=== PATIENT | male | born 2000 | race Asian ===

== ENCOUNTER 2019-03-27 18:21 | Emergency (ER) | payer OTHER ==
[2019-03-27 18:25] VITALS: BP 128/79
--- NOTE | 2019-03-27 18:43 | ED ---
Laceration/Wound HPI - HPI Summary HPI Summary: 19-year-old male presents with splinter into left thumb. He states that he noticed after he was kayaking. He did not try to remove it. It appears pretty superficial but it not able to be accessed through the small opening in the skin. No medical conditions. Concerned that will be infected. He wants it removed. - History of Current Complaint Stated Complaint: I WANT TO GET A SPLINTER REMOVED PER PT Time Seen by Provider: 03/27/19 18:26 Pain Intensity: 3 - Allergy/Home Medications Allergies/Adverse Reactions: Allergies Allergy/AdvReac Type Severity Reaction Status Date / Time No Known Allergies Allergy Verified 03/27/19 18:25 PMH/Surg Hx/FS Hx/Imm Hx Endocrine/Hematology History: Denies: Hx Anticoagulant Therapy Respiratory History: Denies: Hx Asthma Infectious Disease History: No Infectious Disease History: Denies: Traveled Outside the [place] in Last 30 Days - Family History Known Family History: Positive: Non-Contributory - Social History Substance Use Type: Reports: None Smoking Status (MU): Never Smoked Tobacco Review of Systems Negative: Fever Negative: Chest Pain Negative: Shortness Of Breath Positive: Other - splinter in left thumb All Other Systems Reviewed And Are Negative: Yes Physical Exam Triage Information Reviewed: Yes Vital Signs On Initial Exam: Initial Vitals Temp Pulse Resp BP Pulse Ox 99.0 F 78 16 128/79 100 03/27/19 18:23 03/27/19 18:23 03/27/19 18:23 03/27/19 18:23 03/27/19 18:23 Vital Signs Reviewed: Yes Appearance: Positive: Well-Appearing Skin: Positive: Other - 1/4cm splinter under skin in left thumb Head/Face: Positive: Normal Head/Face Inspection Eyes: Positive: Normal, Conjunctiva Clear ENT: Positive: Pharynx normal Respiratory/Lung Sounds: Positive: Clear to Auscultation, Breath Sounds Present Cardiovascular: Positive: Normal, RRR Musculoskeletal: Positive: Strength/ROM Intact - left thumb, Other - capillary refill<2secs Neurological: Positive: Normal Psychiatric: Positive: Normal Diagnostics - Vital Signs Vital Signs Temp Pulse Resp BP Pulse Ox 03/27/19 18:23 99.0 F 78 16 128/79 100 - Laboratory Lab Statement: Any lab studies that have been ordered have been reviewed, and results considered in the medical decision making process. Laceration Repair Course/Dx - Course Course Of Treatment: 19-year-old male presents with splinter into left thumb. He states that he noticed after he was kayaking. He did not try to remove it. It appears pretty superficial but it not able to be accessed through the small opening in the skin. No medical conditions. Concerned that will be infected. He wants it removed. On exam has 1/4 cm superficial appearing splinter on the left thumb. made very small incision and eventfully removed it with tweezers. Told to do warm soaks of the area. Will place on short course antibiotics. Patient understands agrees with plan. - Differential Dx Differental Diagnoses: Abrasion, Foreign Body - Clinical Impression Provider Diagnoses: Splinter Discharge - Sign-Out/Discharge Documenting (check all that apply): Patient Departure Patient Received Moderate/Deep Sedation with Procedure: No - Discharge Plan Condition: Good Disposition: HOME Prescriptions: Cephalexin CAP* [Keflex CAP*] 500 mg PO BID #5 cap Patient Education Materials: Soft Tissue Foreign Body (ED) Referrals: No Primary Care Phys,NOPCP [Primary Care Provider] - Additional Instructions: Take antibiotic twice a day for 3 days, first dose given in ED do warm soaks of the area Take ibuprofen or Tylenol for pain every 6 hours Return to ED if develop fever, area of redness spreads, or any new or worsening symptoms - Billing Disposition and Condition Condition: GOOD Disposition: Home - Attestation Statements Provider Attestation: I was available for consultation for this patient. I did not evaluate the patient or participate in any medical decision making or disposition decisions unless I am specifically named in the chart as having consulted on the patient. If I have consulted on the patient, please see my own ED note on the patient encounter. Paolo Ariza MD
[2019-03-27] MEDS ORDERED: Cephalexin CAP* 500 MG PO ONE (18:59)
== END 2019-03-27 19:05 | disposition home or self-care (01) ==
LOC: ED 18:21
DX: S60.352A Superficial foreign body of left thumb, initial encounter (principal); W45.8XXA Other foreign body or object entering through skin, initial encounter; Y93.16 Activity, rowing, canoeing, kayaking, rafting and tubing; Y92.89 Other specified places as the place of occurrence of the external cause
CPT/HCPCS: 10120; 99282; A9270-GY